=== PATIENT | male | born 1990 | race African-American/Black ===

== ENCOUNTER 2017-09-24 02:45 | Emergency (ER) | payer SELFPAY ==
[2017-09-24 02:56] VITALS: BP 133/72
[2017-09-24] MEDS ORDERED: KETOROLAC TROMETHAMINE 60 MG/2 ML VIAL ONE (03:05)
[2017-09-24] MEDS ORDERED: KETOROLAC TROMETHAMINE 60 MG/2 ML VIAL IM ONE (03:06)
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
== END 2017-09-24 03:15 | disposition home or self-care (01) ==
LOC: ED 02:45
DX: S70.12XA Contusion of left thigh, initial encounter (principal); Y93.67 Activity, basketball
CPT/HCPCS: 96372; 99283; J1885

== ENCOUNTER 2018-12-17 20:13 | Emergency (ER) | payer SELFPAY | END 2018-12-17 21:06 | LOC: ED 20:13 | DX: S93.401A Sprain of unspecified ligament of right ankle, initial encounter (principal); X58.XXXA Exposure to other specified factors, initial encounter; Y93.64 Activity, baseball; Y92.320 Baseball field as the place of occurrence of the external cause; Y99.8 Other external cause status | CPT/HCPCS: 29515; 73610; 99282; 99283 ==

== ENCOUNTER 2019-05-24 08:17 | Emergency (ER) | payer SELFPAY ==
[2019-05-24 08:37] VITALS: BP 127/82
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
[2019-05-24] MEDS ORDERED: KETOROLAC TROMETHAMINE 60 MG/2 ML VIAL IM ONE (09:02)
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
== END 2019-05-24 09:23 | disposition home or self-care (01) ==
LOC: ED 08:17
DX: S92.334A Nondisplaced fracture of third metatarsal bone, right foot, initial encounter for closed fracture (principal); X58.XXXA Exposure to other specified factors, initial encounter
CPT/HCPCS: 73130; 96372; 99282; 99284; J1885